=== PATIENT | female | born 1965 | race Two or more races ===

== ENCOUNTER 2017-07-18 03:10 | Inpatient (IN) | payer BC ==
[2017-07-18] MEDS ORDERED: ACETAMINOPHEN 500 MG TABLET PO ×2 (03:15→12:00)
[2017-07-18 03:55] LABS: URINE HCG POC HCG NEGATIVE (Negative)
[2017-07-18] MEDS: IV NORMAL SALINE 1000ML BAG 1,000 ML IV (04:00)
[2017-07-18 04:06] LABS: ADD MAN DIFF? NO
[2017-07-18] MEDS: fentaNYL PF VIAL 100 MCG/2 ML VIAL IV (04:10)
[2017-07-18 04:14] LABS: BASO % 0 % (0-3); BILIRUBIN,URINE NEGATIVE (NEG); CLARITY,URINE CLEAR; COLOR,URINE YELLOW; EOS # 0.1 x10^3/uL (0.0-0.7); EOS % 1 % (0-3); GLUCOSE,URINE NEGATIVE (NEG); HEMATOCRIT 40.2 % (36.0-47.0); HEMOGLOBIN 13.6 g/dL (12.0-15.5); LYMPH # 2.6 x10^3/uL (1.0-4.8); LYMPH % 28 % (24-48); MEAN CORPUSCULAR HEMOGLOBIN 30 pg (25-35); MEAN CORPUSCULAR HGB CONC 34 g/dL (31-37); MEAN CORPUSCULAR VOLUME 89 fL (79-100); MONO # 0.7 x10^3/uL (0.0-1.1); MONO % 8 % (0-9); NEUT # 5.9 x10^3uL (1.8-7.7); NEUT % 63 % (31-73); NITRITE,URINE NEGATIVE (NEG); PH,URINE 6.5; PLATELET COUNT 215 x10^3/uL (140-400); PROTEIN,URINE NEGATIVE (NEG-TRACE); RED BLOOD COUNT 4.52 x10^6/uL (3.50-5.40); RED CELL DISTRIBUTION WIDTH 13.1 % (11.5-14.5); WHITE BLOOD COUNT 9.4 x10^3/uL (4.0-11.0)
[2017-07-18 04:26] LABS: BACTERIA,URINE 0 /HPF (0-FEW); RBC,URINE 0 /HPF (0-2); SQUAMOUS EPITHELIAL CELL,UR FEW /LPF; WBC,URINE OCC /HPF (0-4)
[2017-07-18 04:27] LABS: AMORPHOUS SEDIMENT,UR PRESENT /HPF
[2017-07-18 04:30] LABS: ANION GAP 8 (6-14); BLOOD UREA NITROGEN 14 mg/dL (7-20); CALCIUM 8.7 mg/dL (8.5-10.1); CARBON DIOXIDE 31 mmol/L (21-32); CHLORIDE 102 mmol/L (98-107); CREATININE 0.8 mg/dL (0.6-1.0); GFR 76.2; GLUCOSE 122 mg/dL (70-99); POTASSIUM 3.1 mmol/L (3.5-5.1); SODIUM 141 mmol/L (136-145)
[2017-07-18 04:35] LABS: ALBUMIN 3.7 g/dL (3.4-5.0); ALK PHOS 113 U/L (46-116); ALT (SGPT) 84 U/L (14-59); AST (SGOT) 96 U/L (15-37); DIRECT BILIRUBIN 0.2 mg/dL (0.0-0.2); LIPASE 198 U/L (73-393); TOTAL BILIRUBIN 0.7 mg/dL (0.2-1.0); TOTAL PROTEIN 7.6 g/dL (6.4-8.2)
[2017-07-18] MEDS ORDERED: MORPHINE SULFATE 2 MG/ML DISP.SYRIN. IV ×2 (05:15→10:00)
[2017-07-18] MEDS ORDERED: INFLUENZA VAX SCREEN BY RX. MC (09:00)
[2017-07-18] MEDS ORDERED: MIDAZOLAM HCL/PF 2 MG/2 ML VIAL. (09:08)
[2017-07-18] MEDS ORDERED: ROCURONIUM 50 MG/5 ML VIAL. (09:08)
[2017-07-18] MEDS ORDERED: fentaNYL PF VIAL 100 MCG/2 ML VIAL (09:08)
[2017-07-18] MEDS ORDERED: NEOSTIGMINE METHYLSULFATE 5 MG/5 ML SYRINGE. (09:08)
[2017-07-18] MEDS ORDERED: DEXAMETHASONE SOD PHOS 20 MG/5 ML VIAL. (09:09)
[2017-07-18] MEDS ORDERED: ONDANSETRON PF 4 MG/2 ML VIAL. (09:09)
[2017-07-18] MEDS ORDERED: KETOROLAC 30 MG/ML INJ FOR OR. INJ (09:09)
[2017-07-18] MEDS ORDERED: SEVOFLURANE 61 TO 120 MINUTES. IH (09:09)
[2017-07-18] MEDS ORDERED: PROPOFOL 0 ML IV (09:09)
[2017-07-18] MEDS ORDERED: LIDOCAINE 2% PF Vial for OR 5 ML VIAL. (09:09)
[2017-07-18] MEDS ORDERED: GLYCOPYRROLATE 1 MG/5 ML VIAL. (09:09)
[2017-07-18] MEDS: IV RINGERS,LACTATED 1000ML 1,000 ML IV (09:54)
[2017-07-18] MEDS ORDERED: fentaNYL PF VIAL 100 MCG/2 ML VIAL IV ×2 (10:00)
[2017-07-18] MEDS ORDERED: LIDOCAINE 1% PF 2 ML VIAL. ID (10:00)
[2017-07-18] MEDS ORDERED: ONDANSETRON PF 4 MG/2 ML VIAL. IV (10:00)
[2017-07-18] MEDS ORDERED: HYDROmorphone 2 MG/ML VIAL IV (10:00)
[2017-07-18] MEDS ORDERED: PROCHLORPERAZINE 10 MG/2 ML VIAL. IV (10:00)
[2017-07-18] MEDS ORDERED: IOHEXOL 300 MG/ML 100ML VIAL. (10:20)
[2017-07-18] MEDS ORDERED: GLUCAGON,HUMAN RECOMBINANT 1 MG/ML VIAL. (10:20)
[2017-07-18] MEDS ORDERED: BUPIVACAINE-EPI 0.25%-1:200000 50 ML VIAL. (10:20)
[2017-07-18] MEDS ORDERED: SURGICEL HEMOSTAT 4X8 EACH. (10:21)
[2017-07-18] MEDS: FLU VACC QS2017-18 (36MOS+)/PF 0.5 ML SYRINGE. VAX IM (10:48)
[2017-07-18] MEDS ORDERED: oxyCODONE/APAP 5/325 1 TAB TABLET PO (12:00)
== END 2017-07-18 13:00 | disposition home or self-care (01) | DRG 446 ==
LOC: ER 03:10 → 5 NORTH 05:05
DX: K80.20 Calculus of gallbladder without cholecystitis without obstruction (principal); K76.0 Fatty (change of) liver, not elsewhere classified; E66.3 Overweight; R74.0 Nonspecific elevation of levels of transaminase and lactic acid dehydrogenase [LDH]; Z68.28 Body mass index [BMI] 28.0-28.9, adult
CPT/HCPCS: 36415; 76705; 80048; 80076; 81001; 81025; 83690; 85025; 90686; 99285; 99285-25; J1100; J1610; J1885; J2250; J2405; J2704; J2710; J3010; J3490; J7030; Q9967

== ENCOUNTER 2020-11-12 16:29 | Emergency (ER) | payer BC ==
[~2020-11-12] VITALS: Ht 152.4 cm; Wt 64.5 kg
[~2020-11-12 16:29] MED LIST: OXYC1TAB15 PO
--- NOTE | 2020-11-12 17:56 | RAD ---
3 views right finger dated 11/12/2020. No comparison available. Clinical data indication: Fourth digit puncture injury. FINDINGS: 3 views of left fourth digit show normal bony alignment. No displaced fracture. There is soft tissue swelling distally. No radiopaque foreign body. No periostitis or bone destruction. IMPRESSION: Soft tissue swelling with no apparent underlying acute bony abnormality. Electronically signed by: Phill White MD (11/12/2020 5:54 PM) [id number]
[2020-11-12] MEDS ORDERED: DIPH,PERTUSS(ACELL),TET VAC/PF 0.5 ML SYRINGE. VAX IM ONE (18:00)
[2020-11-12] MEDS ORDERED: CEPH500C PO (18:11)
--- NOTE | 2020-11-12 18:11 | PHYS DOC ---
Past Medical History Past Medical History: Other Additional Past Medical Histor: "hot" flashes for past couple of months Past Surgical History: No Surgical History Smoking Status: Never Smoker Alcohol Use: Rarely Drug Use: None General Adult EDM: Chief Complaint: FINGER INJURY HPI: HPI: 54-year-old female who denies any significant past medical history presents the ED with her son with complaints of left fourth digit puncture injury that she sustained yesterday after she was picking a metal tools on the ground and throwing them in the trunk of a car. Reports she felt something puncture her left distal finger,similar to a bug bite-did not see any insect. Pt is right hand dominant. Cannot recall last tetanus. No associated hives, dyspnea or difficulties breathing. Review of Systems: Review of Systems: Constitutional: Denies fever or chills. [] Eyes: Denies change in visual acuity. [] HENT: Denies nasal congestion or sore throat. [] Respiratory: Denies cough or shortness of breath. [] Cardiovascular: Denies chest pain or edema. [] GI: Denies nausea or vomiting Musculoskeletal: Denies back pain or joint pain. [] Integument: Denies rash or blistering lesions Neurologic: Denies headache, focal weakness or sensory changes. [] Lymphatic: Denies swollen glands. [] Psychiatric: Denies depression or anxiety. [] Heart Score: C/O Chest Pain: No Risk Factors: Risk Factors: DM, Current or recent (<one month) smoker, HTN, HLP, family history of CAD, obesity. Risk Scores: Score 0 - 3: 2.5% MACE over next 6 weeks - Discharge Home Score 4 - 6: 20.3% MACE over next 6 weeks - Admit for Clinical Observation Score 7 - 10: 72.7% MACE over next 6 weeks - Early Invasive Strategies Allergies: Allergies: Allergies Coded Allergies Type Severity Reaction Last Updated Verified No Known Drug Allergies 11/20/13 No Physical Exam: PE: Constitutional: Well developed, well nourished, no acute distress, non-toxic appearance. HENT: Normocephalic, atraumatic, Eyes: EOMI, conjunctiva normal, no discharge. Neck: Normal range of motion, supple, Cardiovascular: S1/2 present, regular rhythm Lungs & Thorax: Speaking in full sentences, bilateral equal chest rise, no tachypnea or increased work of breathing Skin: Warm, dry, no erythema, no rash. [] Extremities: mild puncture wound site < 1 mm petechia over ventral fat pad of left 4th digit centrally placed distal from DIP joint w/mild swelling, unable to flex at dip joint-some pain with passive dip flexion, prefers extension, no pain with passive extension, no uniform digit swelling, no flexion posture and no percussion tenderness over entire flexor tendon sheath, cap refill < [address], equal radial pulses, no pain at wrist or carpels, no subungual hematoma Neurologic: Alert and oriented X 3, normal motor function, normal sensory function, no focal deficits noted. [] Psychologic: Affect normal, judgement normal, mood normal. [] Current Patient Data: Vital Signs: Vital Signs Date Time Temp Pulse Resp B/P (MAP) Pulse Ox O2 Delivery O2 Flow Rate FiO2 11/12/20 16:48 98.5 76 16 115/63 (80) 96 Room Air 98.5 EKG: EKG: [] Radiology/Procedures: Radiology/Procedures: IMAGING REPORT Signed PATIENT: CHEMO BUI EACCOUNT: [id number] : 1965 LOCATION: ER AGE: 54 SEX: F EXAM STATUS: REG ER ORD. PHYSICIAN: KRISH SCHWARTZ DO REASON: 4th digit, pucnture injury PROCEDURE: FINGER(S) LEFT 3 views right finger dated 11/12/2020. No comparison available. Clinical data indication: Fourth digit puncture injury. FINDINGS: 3 views of left fourth digit show normal bony alignment. No displaced fracture. There is soft tissue swelling distally. No radiopaque foreign body. No periostitis or bone destruction. IMPRESSION: Soft tissue swelling with no apparent underlying acute bony abnormality. Electronically signed by: Phill White MD (11/12/2020 5:54 PM) [id number] DICTATED and SIGNED BY: PHILL WHITE MD DATE: 11/12/20 [id number] 0 Course & Med Decision Making: Course & Med Decision Making Pertinent Labs and Imaging studies reviewed. (See chart for details) Concern for puncture injury to the soft pad of the left ventral fourth digit with decreased range of motion, jersey finger on differential although do not suspect this via mechanism. Will splint in slight flexion and have patient follow-up with hand surgery. Will cover with Keflex although patient has no obvious signs of infection. Tdap updated in ED. Will discharge home with strict ED return precautions were given for rash, worsening pain, decreased range of motion, need for additional swelling or neurologic deficits. Encouraged urgent outpatient follow-up with PMD and hand surgery in 48 to 72 hours for repeat evaluation. Life-threatening processes were considered but are low suspicion at this time, given history, physical exam and ED workup. Pt was educated on all prescription medications and adverse effects. All patient's questions were answered and pt was stable at time of discharge. Life/limb-threatening differential includes but is not limited to, intracranial hemorrhage, diffuse axonal injury, spinal cord syndrome, unstable cervical fracture or SCIWORA, fractures or joint dislocations, neurovascular injuries, organ injury or laceration, pneumothorax, pneumoperitoneum, pericardial tamponade, unstable pelvic fracture, compartment syndrome, flail chest or re spiratory distress, burn injury or asphyxiation I spoken with the patient and her caregivers. I explained the patient's condit ion, diagnoses and treatment plan based on the information available to me at this time. I have answered the patient and her caregiver's questions and addressed any concerns. The patient and her caregivers have a good understanding of patient's diagnosis, condition and treatment plan as can be expected at this point. Vital signs have been stable. Patient's condition is stable and appropriate for discharge from the emergency department. Patient will pursue further outpatient evaluation with primary care physician or other designated or consulting physician as outlined in the discharge instructions. The patient and/or caregivers are agreeable to this plan of care and follow-up instructions have been explained in detail. The patient and/or caregivers have received these instructions in written form and have expressed an understanding of the discharge instructions. The patient and/or caregivers are aware that any significant change of condition or worsening of symptoms should prompt immediate return to this or the closest emergency department or call to 911. Davidson Disclaimer: Davidson Disclaimer: This electronic medical record was generated, in whole or in part, using a voice recognition dictation system. Departure Departure Impression: Primary Impression: Puncture wound of finger of left hand Additional Impression: Need for Tdap vaccination Disposition: HOME / SELF CARE / HOMELESS Condition: STABLE Referrals: NO PCP (PCP) for routine care in 1-2 weeks or FOLLOW UP WITH FAMILY MEDICINE: [address] [place] [address] Patient Instructions: Jersey Finger, Flexor Digitorum Profundus Rupture- SportsMed, Puncture Wound, RICE - Routine Care for Injuries, VIS, Tetanus, Diphtheria (Td); Tetanus, Diphtheria, Pertussis (Tdap) - CDC Additional Instructions: [facility]-IN 48 HOURS TO [place] FOR FLEXOR TENDON INJURY Appointments may be made with Zachery Manzo MD, Hesham Villagran MD, Marvel Harry MD or Mary Robles MD, by calling [phone] EMERGENCY DEPARTMENT GENERAL DISCHARGE INSTRUCTIONS Thank you for coming to [facility] Emergency Department (ED) today and trusting us with you care. We trust that you had a positive experience in our Emergency Department. If you wish to speak to the department management, you may call the Director at [phone]. YOUR FOLLOW UP INSTRUCTIONS ARE FOLLOWS: 1. Do you have a private Doctor? If you do not have a private doctor, please ask for a resource list of physicians or clinics that may be able to assist you with follow up care. 2. The Emergency Physicain has interpreted your x-rays. The X-Ray specialist will also review them. If there is a change in the findings, you will be notified in 48 hours when at all possible. 3. A lab test or culture has been done, your results will be reviewed and you will be notified if you need a change in treatment. ADDITIONAL INSTRUCTIONS AND INFORMATION: 1. Your care today has been supervised by a physician who is specially trained in emergency care. Many problems require more than one evaluation for a complete diagnosis and treatment. We recommend that you schedule your follow up appointment as recommended to ensure complete treatment of you illness or injury. If you are unable to obtain follow up care and continue to have a problem, or if your condition worsens, we recommend that you return to the ED. 2. We are not able to safely determine your condition over the phone nor are we able to give sound medical advice over the phone. For these safety reasons, if you call for medical advice we will ask you to come to the ED for further evaluation. 3. If you have any questions regarding these discharge instructions please call the ED at [phone]. SAFETY INFORMATION: In the interest of safety, wellness, and injury prevention; we encourage you to wear your sealbelt, if you smoke; quite smoking, and we encourage family to use a protective helmet for bicycling and other sporting events that present an increased risk for head injury. IF YOUR SYMPTOMS WORSEN OR NEW SYMPTOMS DEVELOP, OR YOU HAVE CONCERNS ABOUT YOUR CONDITION; OR IF YOUR CONDITION WORSENS WHILE YOU ARE WAITING FOR YOUR FOLLOW UP APPOINTMENT; EITHER CONTACT YOUR PRIMARY CARE DOCTOR, THE PHYSICIAN WHOSE NAME AND NUMBER YOU WERE GIVEN, OR RETURN TO THE ED IMMEDIATELY. Scripts Cephalexin (CEPHALEXIN) 500 Mg Capsule 1 CAP PO QID for 10 Days, #40 CAP Prov: KRISH SCHWARTZ DO 11/12/20 KRISH SCHWARTZ DO Nov 12, 2020 18:11
[2020-11-12 18:45] VITALS: BP 118/66
== END 2020-11-12 18:45 | disposition home or self-care (01) ==
LOC: ER 16:29
DX: S61.235A Puncture wound without foreign body of left ring finger without damage to nail, initial encounter (principal); W26.8XXA Contact with other sharp object(s), not elsewhere classified, initial encounter; Y93.89 Activity, other specified; Y92.89 Other specified places as the place of occurrence of the external cause; Y99.8 Other external cause status
CPT/HCPCS: 29125; 73140; 90471; 90715; 99283